=== PATIENT | female | born 1980 | race American Indian/Alaskan Native ===

== ENCOUNTER 2018-02-25 02:12 | Emergency (ER) | payer SELFPAY ==
[2018-02-25 02:23] VITALS: BP 117/77
[2018-02-25 03:29] LABS: Alanine Aminotransferase 9 units/L (7-56); Albumin 3.9 g/dL (3.9-5); BUN/Creatinine Ratio 21; Basophils % (Auto) 0.5 % (0.0-1.8); Blood Urea Nitrogen 15 mg/dL (7-17); Calcium 8.5 mg/dL (8.4-10.2); Eosinophils # (Auto) 0.1 K/mm3 (0.0-0.4); Eosinophils % (Auto) 1.9 % (0.0-4.3); Hematocrit 35.6 % (30.3-42.9); Hemoglobin 11.8 gm/dl (10.1-14.3); Hemolysis Index 2; Lymphocytes # (Auto) 3.1 K/mm3 (1.2-5.4); Lymphocytes % (Auto) 45.7 % (13.4-35.0); Mean Corpuscular HGB Conc 33 % (30-34); Mean Corpuscular Hemoglobin 29 pg (28-32); Mean Corpuscular Volume 86 fl (79-97); Monocytes # (Auto) 0.6 K/mm3 (0.0-0.8); Monocytes % (Auto) 9.2 % (0.0-7.3); Platelet Count 260 K/mm3 (140-440); Red Blood Count 4.14 M/mm3 (3.65-5.03); Red Cell Distribution Width 13.3 % (13.2-15.2)
[2018-02-25 03:40] LABS: Bilirubin,Urine NEG (Negative); Blood,Urine NEG (Negative); Color,Urine Yellow (Yellow); Mucus,Urine FEW /HPF; Protein,Urine <15 mg/dL mg/dL (Negative); Urobilinogen,Urine < 2.0 mg/dL (<2.0)
== END 2018-02-25 08:00 | disposition left against medical advice (07) ==
LOC: ED 02:12
DX: N64.4 Mastodynia (principal); Z53.21 Procedure and treatment not carried out due to patient leaving prior to being seen by health care provider
CPT/HCPCS: 36415; 80053; 81001; 84703; 85025

== ENCOUNTER 2018-08-06 19:43 | Emergency (ER) | payer SELFPAY | END 2018-08-06 19:50 | disposition left against medical advice (07) | LOC: ED 19:43 | DX: T81.89XA Other complications of procedures, not elsewhere classified, initial encounter (principal); Z53.21 Procedure and treatment not carried out due to patient leaving prior to being seen by health care provider ==

== ENCOUNTER 2022-06-16 16:23 | Emergency (ER) | payer SELFPAY ==
[2022-06-16] MEDS ORDERED: MORPHINE 4 MG/1 ML INJ IV ONE ×2 (16:36→17:15)
[2022-06-16] MEDS ORDERED: SODIUM CHLORIDE 0.9% 1000 ML 1,000 ML IV ONE (16:36)
[2022-06-16] MEDS ORDERED: ONDANSETRON 4 MG/2 ML INJ IV ONE (16:36)
[2022-06-16 17:46] LABS: Blood Urea Nitrogen 10 mg/dL (7-17); Hemolysis Index 7
[2022-06-16 17:48] LABS: BUN/Creatinine Ratio 17
[2022-06-16 17:58] LABS: Basophils % (Auto) 0.8 % (0.0-1.8); Eosinophils # (Auto) 0.1 K/mm3 (0.0-0.4); Eosinophils % (Auto) 1.6 % (0.0-4.3); Hematocrit 35.5 % (30.3-42.9); Hemoglobin 11.7 gm/dl (10.1-14.3); Lymphocytes # (Auto) 2.6 K/mm3 (1.2-5.4); Lymphocytes % (Auto) 43.1 % (13.4-35.0); Mean Corpuscular HGB Conc 33 % (30-34); Mean Corpuscular Volume 92 fl (79-97); Monocytes # (Auto) 0.5 K/mm3 (0.0-0.8); Monocytes % (Auto) 8.2 % (0.0-7.3); Platelet Count 240 K/mm3 (140-440); Red Blood Count 3.87 M/mm3 (3.65-5.03); Red Cell Distribution Width 14.1 % (13.2-15.2)
--- NOTE | 2022-06-16 18:59 | Ultrasound Report ---
ULTRASOUND PELVIS INDICATION / CLINICAL INFORMATION: LLQ pain, 8 weeks ; confirm live IUP. TECHNIQUE: Transabdominal. Duplex Color Doppler used: Yes. COMPARISON: None available FINDINGS: UTERUS: Uterus is enlarged measuring greater than 22 cm in length. There are multiple uterine masses. The largest measures approximately 15 cm. The appearance is most consistent with a significantly enl arged fibroid uterus. Normal myometrial tissue could not be identified. The endometrial stripe is not seen. RIGHT ADNEXA: The right ovary is not visualized. No right adnexal masses seen. LEFT ADNEXA: The left ovary measures 3.4 cm. There is a 2 cm cyst in the left ovary. Normal color Dop pler blood flow. URINARY BLADDER: No significant abnormality. FREE FLUID: None. ADDITIONAL FINDINGS: None. IMPRESSION: 1. The uterus is markedly enlarged. There are multiple mass lesions throughout the uterus most charac teristic of uterine fibroids. The largest measures approximately 15 cm. 2. No intrauterine is identifiable on this exam. Normal myometrial tissue and the endometri al cavity cannot be discretely identified on this ultrasound exam. Correlation with serum beta hCG le simon is recommended to confirm patient is . Signer Name: Timothy Malcolm MD Signed: 06/16/2022 6:54 PM Workstation Name: [id number]
--- NOTE | 2022-06-16 19:33 | Emergency Department Report ---
HPI - General Chief Complaint: Abdominal Pain PUI?: No Time Seen by Provider: 06/16/22 16:35 - HPI HPI: 42-year-old female with self-reported history of prior ectopic pregnancies, G3, P0 per her report, last menstrual cycle approximately March 2022, presents for evaluation of what she states is abdominal pain. Patient reports that she is visiting from [place] and that she had an ultrasound 2 weeks ago and states "they told me I have a baby in my uterus and that I am 8 weeks ." Patient states that she is currently visiting her boyfriend here in [place]. She reports that acutely yesterday she began developing lower abdominal pain and cramping. She reports she has a known history of fibroids but states that "because of my fibroids I am unable to get successfully and I keep having tubal pregnancies." She reports nausea. Pain is constant severe and radiates throughout her entire abdomen. No vaginal bleeding or abnormal discharge. She states she was last sexually active with her boyfriend 2 days ago. Pain currently 10 out of 10 pain ED Past Medical Hx - Past Medical History Previous Medical History?: No - Surgical History Past Surgical History?: Yes Additional Surgical History: ectopic / - Social History Smoking Status: Never Smoker Substance Use Type: None - Medications Home Medications: Home Medications Medication Instructions Recorded Confirmed Last Taken Type Azithromycin [Zithromax Z-IDALMIS] 250 mg PO QDAY #6 tablet 05/24/18 Unknown Rx Benzonatate [Tessalon Perles] 100 mg PO Q8HR #20 capsule 05/24/18 Unknown Rx Cyclobenzaprine HCl [Flexeril 5 MG 5 mg PO Q8HR PRN #15 tab 05/24/18 Unknown Rx TAB] Ibuprofen [Motrin] 800 mg PO Q8HR PRN #15 tablet 05/24/18 Unknown Rx guaiFENesin [Mucinex] 600 mg PO BID PRN #20 tab.er.12h 05/24/18 Unknown Rx Ibuprofen [Motrin 800 MG tab] 800 mg PO Q8HR PRN 7 Days #21 06/16/22 Unknown Rx tablet Ondansetron [Zofran Odt] 4 mg PO Q8HR #12 tab.rapdis 06/16/22 Unknown Rx ED Review of Systems ROS: Stated complaint: ABD PAIN/ ETOPIC ? Other details as noted in HPI Comment: All other systems reviewed and negative Gastrointestinal: abdominal pain, nausea, vomiting Physical Exam - Physical Exam Vital Signs: Vital Signs 06/16/22 06/16/22 16:23 17:12 Temperature 97.9 F 97.9 F Pulse Rate 80 69 Respiratory 22 15 Rate Blood Pressure 125/72 Blood Pressure 124/70 125/72 [Left] O2 Sat by Pulse 99 100 Oximetry General: Gen: Adult female, severe distress, crying, complaining of severe lower abdominal pain, HEENT: Normocephalic atraumatic pupils equally round and reactive to light extraocular muscles intact sclera anicteric Neck: Full range of motion, no midline spinal tenderness palpation, no JVD, no carotid bruits, no nuchal rigidity CVS: S1-S2 regular rate and rhythm with no gallops rubs or murmurs, chest wall nontender Pulmonary: Clear to auscultation bilaterally, no wheezes rales or rhonchi Abdomen: Firm, lower abdominal distention noted, firm palpable masses present in patient's lower abdomen, no guarding or rebound tenderness no palpable hepatosplenomegaly,, no pulsatile masses, hypoactive bowel sound : Deferred Extremities: No cyanosis no clubbing no edema, intact distal peripheral pulses, Integumentary: Skin normal, no petechia no purpura no abscess no lacerations no evidence of trauma no evidence of infection Neuro: Patient is awake alert and oriented to person place time situation, mentating well, cranial nerves II through XII intact, no focal neurodeficits, sensation grossly tact Psych: Calm cooperative, mood affect normal ED Course Vital Signs 06/16/22 06/16/22 16:23 17:12 Temperature 97.9 F 97.9 F Pulse Rate 80 69 Respiratory 22 15 Rate Blood Pressure 125/72 Blood Pressure 124/70 125/72 [Left] O2 Sat by Pulse 99 100 Oximetry - Reevaluation(s) Reevaluation #1: 06/16/22 19:31 Patient reassessed by me. Patient was informed that her hCG is less than 2 and there is no evidence of an IUP or ectopic . Patient verbalized understanding. She states she will provide a urine sample for urinalysis testing. ED Medical Decision Making - Lab Data Result diagrams: 06/16/22 17:19 06/16/22 17:19 - Radiology Data Radiology results: report reviewed - Medical Decision Making 42-year-old female with self-reported history of being currently with single live IUP, uterine fibroids, presents for evaluation of lower abdominal pain. Vital signs stable. Serum hCG negative. Remainder of labs grossly unremarkable. Transvaginal ultrasound performed and results reviewed and discussed at length with the patient. Patient verbalized acknowledgment and understanding that she currently is not . She is advised to take ibuprofen as needed for pain. Take acetaminophen for additional pain. She is also advised to follow-up with her sandfill operator surface in [place] for reassessment and further management. Patient discharged to home. Critical care attestation.: If time is entered above; I have spent that time in minutes in the direct care of this critically ill patient, excluding procedure time. ED Disposition Clinical Impression: Uterine fibroid Disposition: HOME / SELF CARE / HOMELESS Is pt being admited?: No Does the pt Need Aspirin: No Condition: Stable Instructions: Abdominal Pain (ED) Additional Instructions: Your blood work today and your ultrasound show that you are not currently . Your ultrasound shows that you have multiple uterine fibroids. Please discuss further management with your sandfill operator surface as soon as possible, concerning this. Take ibuprofen as needed for pain. Take acetaminophen for additional pain management. You may alternate ibuprofen 800mg by mouth every 6 hours with acetaminophen, 650mg by mouth. Acetaminophen itself may be taken every 6 hours. Use warm or hot compresses to help decrease pain, a well. Observe your symptoms very carefully. Go to the nearest urgent care or emerg ency department if you develop severe or worsening pain, vomiting, inability tolerate liquids or solids, any fever of 100.5 Fahrenheit or higher, or if any other new worrisome symptoms develop. Prescriptions: Ibuprofen [Motrin 800 MG tab] 800 mg PO Q8HR PRN 7 Days #21 tablet PRN Reason: Pain , Severe (7-10) Ondansetron [Zofran Odt] 4 mg PO Q8HR #12 tab.natasha
[2022-06-16 19:57] LABS: Amphetamine Screen,Urine Negative; Benzodiazepines Screen,Urine Negative; Methadone Screen,Urine Negative
[2022-06-16 20:06] LABS: HCG Qualitative,Urine Negative (Negative)
[2022-06-16 20:13] LABS: Cannabinoid Screen,Urine Positive; Cocaine Screen,Urine Positive; Opiate Screen,Urine Positive
[2022-06-16 20:15] LABS: Bacteria,Urine 1+ /HPF (Negative); Mucus,Urine 1+ /HPF
[2022-06-16] MEDS ORDERED: KETOROLAC 30 MG/1 ML INJ IV ONE (20:27)
[2022-06-16] MEDS ORDERED: SULFAMETHOXAZOLE/TRIMETHOPRIM 800/160MG DS TAB PO ONE (20:31)
[2022-06-16 20:44] LABS: Bilirubin,Urine Negative (Negative); Blood,Urine Trace (Negative); Color,Urine Straw (Yellow)
[2022-06-16 20:45] LABS: Urobilinogen,Urine < 2.0 mg/dL (<2.0)
[2022-06-16 20:48] VITALS: BP 132/77
== END 2022-06-16 20:50 | disposition home or self-care (01) ==
LOC: ED 16:23
DX: D25.9 Leiomyoma of uterus, unspecified (principal); Z98.890 Other specified postprocedural states; Z79.899 Other long term (current) drug therapy; Z88.6 Allergy status to analgesic agent
CPT/HCPCS: 36415; 76856; 80048; 80307; 81001; 81025; 84702; 85025; 86900; 86901; 87086; 96361; 96374; 96375; 99284; J1885; J2270; J2405; J7030